=== PATIENT | male | born 1955 | race African-American/Black ===

== ENCOUNTER 2023-11-27 09:35 | Emergency (ER) | payer BC, SELFPAY ==
[2023-11-27 09:50] VITALS: BP 154/89
--- NOTE | 2023-11-27 10:48 | ED.MUSCINJ ---
HPI-Injury
General
Chief Complaint: Musculo-Skeletal Complaint
Source: patient
Exam Limitations: none
Time Seen by Provider: 11/27/23 10:37
Nursing documentation reviewed up to this point in time: agreed with
Travel History
Have you had any contact with someone who has COVID-19?: No
Do you have any symptoms of coronavirus? Fever > 100 degrees, chills, cough, shortness of breath, sore throat, loss of taste or smell, muscle aches, or headache?: No
History of Present Illness-Injury
Is this injury a work related problem?: No
Is pt an associate of [facility]?: No
Initial Injury comments:
PPatient to ED for eval of cramps to hands legs and feet. States symptoms started yesterday evening. He was able to work cramps away but states in the middle of the night he woke with severe rightwrist pain. Pain has since diminished. No joint
swelling or redness. Denies fever/chills. No prior history of same. Brought self to ED for eval.
Past History
Past History
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
ED Past Surgical History: Orthopedic (Washout left knee)
Social History
Tobacco: Non-smoker
Living: with family
Employment: Employed
Review of Systems
Review of Systems
Allergies reviewed?: Yes
All Other Systems: ROS reviewed and negative except as documented in HPI and ROS
Constitutional: Reports no symptoms
EENT: Reports no symptoms
Respiratory: Reports cough
Cardiac: Reports no symptoms
ABD/GI: Reports no symptoms
Musculoskeletal: Reports joint pain (right wrist pain overnight) and muscle pain (cramping to hands, feet, legs)
Skin: Reports no symptoms
Neurological: Reports no symptoms
Psychiatric: Reports no symptoms
Musculoskeletal Injury Exam
Musculoskeletal Injury Exam
Right Wrist:
Pain with Movement?: None
Tender to palpation?: None
Soft tissue swelling?: None
External deformity and angulation?: None
Joint effusion?: None
Contusion?: None
Hematoma-local bleeding into tissue?: None
Strain- Sprain- Tear (Connective tissue injury)?: None
Crepitus with movement?: No
Joint instability?: No
Malalignment/deformity?: No
Range of motion: Full
Distal skin color and temperature: normal-warm & good color
Capillary Refill: normal
Normal distal neurovascular exam?: Yes
Peripheral Pulses: radial (right): 3+
Phy Exam
General Physical Exam
General Presentation: well appearing and no apparent distress
General age: appears stated age
General Skin: warm and dry
General Habitus: normal
General Mental: alert
General Hydration: appears well hydrated
Cardiovascular Exam
Cardiovascular Exam: regular rate/rhythm and no edema
Pulmonary Exam
Pulmonary Exam: lungs clear and no respiratory distress
Musculoskeletal Exam
Musculoskeletal Exam: full ROM, neuro vasc intact and other (No joint redness or swelling. No evidence of wounds. Full ROM to bilateral upper and lower extremities. No cramping while in dept.)
Skin Exam
Skin Exam: normal color, warm/dry and no rash
Psychiatric Exam
Psychiatric Exam: normal mood/affect
Injury Course
Orders/Labs/Results
Orders:
Orders
11/27/23 10:47
CR Chest - 2 Views Urgent
Comment:
Reason For Exam: cough
11/27/23 11:04
Complete Blood Count/With Diff Urgent
Comprehensive Metabolic Panel Urgent
Magnesium Urgent
Abnormal Lab Results
11/27/23
11:04
Hgb 12.6 L g/dL
(13.0-18.0)
Hct 38.7 L %
(39.0-52.0)
MCH 26.5 L pg
(27.0-31.0)
MCHC 32.6 L g/dL
(33.0-37.0)
MPV 11.4 H fL
(7.4-10.4)
Sodium 134 L mmol/L
(135-145)
BUN 21 H mg/dl
(9-20)
AST 64 H U/L
(17-59)
11/27/23 11:04
11/27/23 11:04
*Radiology
Radiology exam reviewed: radiology read reviewed
*Pulse Oximetry
Patient hypoxic: no
*Critical Care Note
Total Time (30-74mins, 75-104mins- exclusive of procedures): Not Applicable
Update Note
Update Note:
Labs, xray results discussed with patient. No concerning findings on exam. Patient is discharged home, will follow up with PCP. Encouraged increasing po fluids.
ED Attending Note
-
Portions of this chart may have been created with voice recognition software.� Occasional wrong word or��sound alike� substitutions may have occurred due to the inherent limitations of voice recognition software.
Discharge Plan
Departure
Prescriptions:
No Action
sennosides [senna] 1 TABLET tablet
2 tab PO BID 0RF
acetaminophen 325 MG tablet
650 mg PO Q4H 0RF
aspirin 325 MG tablet
325 mg PO DAILY 0RF
pantoprazole 40 MG tablet,delayed release (DR/EC)
40 mg PO DAILY 0RF
docusate sodium 100 MG capsule
100 mg PO BID 0RF
colchicine 0.6 MG tablet
0.6 mg PO DAILY 0RF
ceftriaxone 2,000 MG/20 ML recon soln
2,000 mg IV Q24H 0RF
hydromorphone 4 MG tablet
4 mg PO Q4HPRN PRN (Reason: severe pain) Qty: 10 0RF
ibuprofen 800 MG tablet
800 mg PO Q6HPRN PRN (Reason: moderate pain) Qty: 10 0RF
polyethylene glycol 3350 238 GM powder
17 gm PO DAILY Qty: 5 0RF
Referrals:
UNKNOWN - PT DOES,NOT KNOW [Family Provider] -
Interventions
Interventions:
*Risk Screen - Suicide Last Done: 11/27/23 09:50
*General Assessment Last Done: 11/27/23 09:50
*Neglect/Abuse Screening Last Done: 11/27/23 09:50
ED- Fall Risk Assessment Last Done: 11/27/23 11:09
*ED COVID-19 Vaccine History Last Done: 11/27/23 11:08
ED-Musculoskeletal Assessment Last Done: 11/27/23 11:11
Discharge Date and Time
Print Language: MAORI
[2023-11-27 11:03] VITALS: BMI 26.1
[2023-11-27 11:13] LABS: % Basophils 0.4 % (0-2); % Eosinophils 3.3 % (0-6); % Lymphocytes 61.8 % (20.5-51.1); % Monocytes 9.4 % (1.7-9.3); % Neutrophils 25.1 % (42.2-75.2); Absolute Eosinophils 0.2 10^3/uL (0-0.7); Absolute Monocytes 0.5 10^3/uL (0.1-0.6); Absolute Neutrophils 1.2 10^3/uL (1.4-6.5); Hematocrit 38.7 % (39.0-52.0); Hemoglobin 12.6 g/dL (13.0-18.0); Mean Corp Hgb Conc. 32.6 g/dL (33.0-37.0); Mean Corpuscular Hgb 26.5 pg (27.0-31.0); Mean Corpuscular Volume 81.3 fL (80.0-94.0); Mean Platelet Volume 11.4 fL (7.4-10.4); Nucleated Red Blood Cells % 0 % (-); Platelet Count 164 10^3/uL (130-400); Red Blood Cell Count 4.76 10^6/uL (4.70-6.10); Red Cell Dist. Width 13.6 % (11.5-14.5); White Blood Cell Count 4.9 10^3/uL (4.8-10.8)
[2023-11-27 11:28] LABS: ALT (SGPT) 46 U/L (0-50); AST (SGOT) 64 U/L (17-59); Albumin 3.5 g/dl (3.5-5.0); Alkaline Phosphatase 52 U/L (38-126); Blood Urea Nitrogen 21 mg/dl (9-20); Calcium 8.8 mg/dl (8.4-10.2); Carbon Dioxide 28 mmol/L (22-30); Chloride 106 mmol/L (98-107); Estimated Creatinine Clearance > 125 ml/min; Glucose 74 mg/dl (70-99); Magnesium 1.8 mg/dl (1.6-2.3); Potassium 4.1 mmol/L (3.5-5.1); Sodium 134 mmol/L (135-145); Total Bilirubin 0.7 mg/dl (0.2-1.3); Total Protein 6.5 g/dl (6.3-8.2); eGFR > 60.00
[2023-11-27 12:52] VITALS: BP 148/73
== END 2023-11-27 12:53 | disposition home or self-care (01) ==
LOC: EMR 09:35
PROVIDERS: Nurse Practitioner; EMERGENCY PHYSICIAN Emergency Medicine
DX: R25.2 Cramp and spasm (principal); R05.9 Cough, unspecified
CPT/HCPCS: 99284; 71046; 80053; 83735; 85025

== ENCOUNTER 2024-04-17 08:47 | Emergency (ER) | payer BC, SELFPAY ==
[2024-04-17 09:02] VITALS: BP 150/83
[2024-04-17 09:28] VITALS: BMI 27.4
--- NOTE | 2024-04-17 09:40 | ED.GENMED ---
History of Present Illness
<Angeline Pantoja PA-C - Last Filed: 04/17/24 16:57>
General
Chief Complaint: Male Genito-Urinary Symptoms
Source: patient
Exam Limitations: none
Time Seen by Provider: 04/17/24 09:25
Nursing documentation reviewed up to this point in time: agreed with
History of Present Illness
History of Present Illness:
Patient is a 68-year-old male presenting for evaluation of dysuria since yesterday. Patient states yesterday he began experiencing urinary frequency and dysuria. Patient states that he notices a 'burning 'sensation when he has been peeing.
Patient denies any urinary hesitancy or hematuria. Patient denies any penile lesions or discharge. Patient denies any associated fever, chills, nausea, vomiting, abdominal pain, or back pain. Patient states that he is sexually active with only
his . He has no concerns for sexually transmitted diseases,
Patient does state that he has had a UTI when he was much younger.
Past History
<Angeline Pantoja PA-C - Last Filed: 04/17/24 16:57>
Past History
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
ED Past Surgical History: Orthopedic (Washout left knee)
Social History
Tobacco: Non-smoker
Living: with family
Employment: Employed
Review of Systems
<Angeline Pantoja PA-C - Last Filed: 04/17/24 16:57>
Review of Systems
Allergies reviewed?: Yes
All Other Systems: ROS reviewed and negative except as documented in HPI and ROS
Phy Exam
<Angeline Pantoja PA-C - Last Filed: 04/17/24 16:57>
Physical Exam
Physical Exam:
Vitals: Hypertensive, otherwise vital signs stable. Afebrile
General: Patient is well appearing, no acute distress. Nontoxic-appearing
Skin: Warm and dry, no rashes or lesions
Head: Normocephalic, atraumatic
Eyes: Sclera nonicteric. EOMs intact. No nystagmus.
Throat: Protecting airway
Neck: Normal ROM, no cervical spine tenderness, no meningismus
Cardiac: Regular rate and rhythm, no murmurs.
Pulm: Normal respiratory effort, no wheezes, rales, rhonchi heard on exam.
Abdomen: Abdomen soft. No abdominal tenderness. No CVA tenderness
Extremities: No evidence of cyanosis or edema
Neuro: AAOx3. CN II-XII intact. No focal neurologic deficits.
Psychiatric: Normal affect.
Course
<Angeline Pantoja PA-C - Last Filed: 04/17/24 16:57>
Orders/Labs/Results
Orders:
Orders
04/17/24 09:12
Urinalysis Reflex To Culture Urgent
Date Specimen was Collected: 04/17/24
Time Specimen was Collected: 09:05
Urine Microscopic Reflex Cult Urgent
Urine Culture Urgent
ALPHONSO Source: U
Specimen Description:
Date Specimen was Collected: 04/17/24
Time Specimen was Collected: 09:05
04/17/24 10:50
Sulfamethox./Trimethoprim Ds [Bactrim Ds 800 mg/160 mg] 1 tablet PO NOW STA
Abnormal Lab Results
04/17/24
09:12
Ur Occult Blood Reflex 4+ A
(Negative)
Urine Nitrite (Reflex) Positive A
(Negative)
Leukocyte Esterase Rfl 2+ A
(Negative)
Urine RBC 7-10 A /HPF
(0-2)
Urine WBC (Reflex) 30-40 A /HPF
(0-5)
Urine Bacteria (Reflex) Moderate A
(Negative)
Vital Signs
Initial and Last Documented VS:
Initial Vital Signs
Temp Pulse Resp BP Pulse Ox
98.1 F 58 18 150/83 98
04/17/24 09:02 04/17/24 09:02 04/17/24 09:02 04/17/24 09:02 04/17/24 09:02
Last Documented Vital Signs
Temp Pulse Resp BP Pulse Ox
98.1 F 50 14 128/68 100
04/17/24 09:02 04/17/24 10:48 04/17/24 10:48 04/17/24 10:48 04/17/24 10:48
<Vinay Francis, DO - Last Filed: 04/17/24 10:56>
Orders/Labs/Results
Orders:
Orders
04/17/24 09:12
Urinalysis Reflex To Culture Urgent
Date Specimen was Collected: 04/17/24
Time Specimen was Collected: 09:05
Urine Microscopic Reflex Cult Urgent
Urine Culture Urgent
ALPHONSO Source: U
Specimen Description:
Date Specimen was Collected: 04/17/24
Time Specimen was Collected: 09:05
04/17/24 10:50
Sulfamethox./Trimethoprim Ds [Bactrim Ds 800 mg/160 mg] 1 tablet PO NOW STA
Abnormal Lab Results
04/17/24
09:12
Ur Occult Blood Reflex 4+ A
(Negative)
Urine Nitrite (Reflex) Positive A
(Negative)
Leukocyte Esterase Rfl 2+ A
(Negative)
Urine RBC 7-10 A /HPF
(0-2)
Urine WBC (Reflex) 30-40 A /HPF
(0-5)
Urine Bacteria (Reflex) Moderate A
(Negative)
Vital Signs
Initial and Last Documented VS:
Initial Vital Signs
Temp Pulse Resp BP Pulse Ox
98.1 F 58 18 150/83 98
04/17/24 09:02 04/17/24 09:02 04/17/24 09:02 04/17/24 09:02 04/17/24 09:02
Last Documented Vital Signs
Temp Pulse Resp BP Pulse Ox
98.1 F 50 14 128/68 100
04/17/24 09:02 04/17/24 10:48 04/17/24 10:48 04/17/24 10:48 04/17/24 10:48
<Angeline Pantoja PA-C - Last Filed: 04/17/24 16:57>
MDM/Problems Addressed
Differential Diagnosis Includes:
Not limited to: UTI, pyelonephritis, kidney stone, prostatitis
MDM/Problems Addressed:
Patient is a 68-year-old male presenting with 1 day of dysuria and urinary frequency. No fever, chills, nausea, vomiting or signs of systemic illness. No abdominal pain or back pain. Patient in a monogamous relationship and not concerned for
STDs. Patient mildly hypertensive, otherwise vital signs stable. Patient is afebrile. Patient is well-appearing, in no apparent distress. He is nontoxic-appearing. Abdomen is soft and nontender throughout. There is no CVA tenderness. Patient
is perfusing well. Urinalysis was obtained in triage which appears to be infected. (30-40 WBC, positive for nitrate, 2+ leukocyte esterase with moderate bacteria). Do not suspect prostatitis. No symptoms consistent with upper urinary tract
infection including pyelonephritis. Will treat for acute UTI with Bactrim. Patient will be given first dose in emergency department today. Return precautions discussed. Patient given information to follow-up with urology. Stable for discharge.
Patient seen with attending physician
Chronic conditions affecting care:
N/A
Acute Exacerbation and/or Progression of Chronic Illness:
N/A
<Angeline Pantoja PA-C - Last Filed: 04/17/24 16:57>
*Pulse Oximetry
Patient hypoxic: no
*EKG
Interpreted by ED Provider?: NA
*Polystyrene Molding Machine Tender Interpretation
Rate: Polystyrene Molding Machine Tender- N/A
*Critical Care Note
Total Time (30-74mins, 75-104mins- exclusive of procedures): Not Applicable
ED Attending Note
<Angeline Pantoja PA-C - Last Filed: 04/17/24 16:57>
-
Portions of this chart may have been created with voice recognition software.� Occasional wrong word or��sound alike� substitutions may have occurred due to the inherent limitations of voice recognition software.
<Vinay Francis, - Last Filed: 04/17/24 10:56>
ED Attending Note
Patient seen and examined by attending physician: Yes
I performed a history and physical exam of patient and discussed management with resident, I reviewed resident's note and agree with documented findings and plan of care.: Yes
ED Attending Note:
I have reviewed and agree with history and treatment plan by Angeline Panotja. My exam revealed 68-year-old male in no acute distress. Abdomen exam benign. Treat with Bactrim. Follow-up with urology. Return precautions given.
Discharge Plan
Departure
Patient Disposition: Home (Routine Discharge)
Date of Disposition: 04/17/24
Time of Disposition: 10:51
Patient with high blood pressure during this ER visit?: No
Condition: Good
Covid-19: Not Applicable
Discharge Problem:
Acute UTI
Instructions: Urinary Tract Infection, Adult ED
Prescriptions:
New
sulfamethoxazole-trimethoprim [Bactrim DS] 800-160 mg tablet
1 tab PO BID 7 Days Qty: 14 0RF
phenazopyridine [Pyridium] 200 mg tablet
200 mg PO TID PRN (Reason: Pain) Qty: 6 0RF
Rx Instructions:
Use for up to 2 days as needed
No Action
sennosides [senna] 1 TABLET tablet
2 tab PO BID 0RF
acetaminophen 325 MG tablet
650 mg PO Q4H 0RF
aspirin 325 MG tablet
325 mg PO DAILY 0RF
pantoprazole 40 MG tablet,delayed release (DR/EC)
40 mg PO DAILY 0RF
docusate sodium 100 MG capsule
100 mg PO BID 0RF
colchicine 0.6 MG tablet
0.6 mg PO DAILY 0RF
ceftriaxone 2,000 MG/20 ML recon soln
2,000 mg IV Q24H 0RF
hydromorphone 4 MG tablet
4 mg PO Q4HPRN PRN (Reason: severe pain) Qty: 10 0RF
ibuprofen 800 MG tablet
800 mg PO Q6HPRN PRN (Reason: moderate pain) Qty: 10 0RF
polyethylene glycol 3350 238 GM powder
17 gm PO DAILY Qty: 5 0RF
Referrals:
Eliel Calixto MD [Active] - Call in 1-3 days for appt
UNKNOWN - PT DOES,NOT KNOW [Family Provider] -
Activity Restrictions/Additional Instructions:
RETURN TO THE EMERGENCY DEPARTMENT WITH ANY FEVERS, CHILLS, NAUSEA/VOMITING, SEVERE ABDOMINAL OR BACK PAIN, INABILITY TO URINATE, WORSENING IN CURRENT SYMPTOMS, OR ANY OTHER CONCERNS
-As discussed�your urinalysis showed evidence of a urinary tract infection today. A prescription for antibiotic has been sent to your pharmacy. You should take this twice a day for the next 7 days. It is important to stay well-hydrated.
-You should follow-up with your primary care provider/urology in a week to ensure symptoms are improving/for further evaluation.
Monitor your symptoms closely and return to the emergency department with any acute worsening/new symptoms
Interventions
Interventions:
*Risk Screen - Suicide Last Done: 04/17/24 09:02
*General Assessment Last Done: 04/17/24 09:02
*Neglect/Abuse Screening Last Done: 04/17/24 09:02
ED- Fall Risk Assessment Last Done: 04/17/24 09:31
*ED COVID-19 Vaccine History Last Done: 04/17/24 09:27
*Nursing Disposition Last Done: 04/17/24 11:13
ED-Male Genitourinary Assessment Last Done: 04/17/24 09:29
Discharge Date and Time
Discharge Date/Time: 04/17/24 11:14
Print Language: MACEDONIAN
[2024-04-17 09:46] LABS: Urine Albumin Trace (Neg - Trace); Urine Bilirubin Negative (Negative); Urine Character Very Cloudy (Clear); Urine Color Amber; Urine Glucose Negative (Negative); Urine Ketone Negative (Negative); Urine Leukocyte 2+ (Negative); Urine Nitrite Positive (Negative); Urine Occult Blood 4+ (Negative); Urine Specific Gravity 1.025 (<1.030); Urine Urobilinogen Negative (Neg - 1+)
--- NOTE | 2024-04-17 09:58 | EDRN ---
Juancho MARINA in room w/pt at this time.
[2024-04-17 09:59] LABS: Urine Squamous Cell 0-2 /LPF (Few)
[2024-04-17 10:00] LABS: Urine Bacteria Moderate (Negative)
[2024-04-17 10:01] LABS: Urine White Cell 30-40 /HPF (0-5)
--- NOTE | 2024-04-17 10:47 | EDRN ---
Dr. Francis in room w/ pt at this time.
[2024-04-17 10:48] VITALS: BP 128/68
[2024-04-17] MEDS: BACTRIM DS 800 MG/160 MG 1 TABLET PO (11:04)
== END 2024-04-17 11:14 | disposition home or self-care (01) ==
LOC: EMR 08:47
PROVIDERS: EMERGENCY PHYSICIAN Emergency Medicine
DX: N39.0 Urinary tract infection, site not specified (principal); Z87.440 Personal history of urinary (tract) infections
CPT/HCPCS: 99282; 81003; 81015; 87086; 87088; 87186